=== PATIENT | female | born 1970 | race Caucasian/White ===

== ENCOUNTER 2018-02-10 01:00 | Inpatient (IN) | payer MEDICAID ==
[~2018-02-10] VITALS: Ht 160 cm; Wt 59.8 kg
[2018-02-10 01:52] LABS: BASOPHILS % (AUTO) 1.9 % (0.0-2.0); EOSINOPHILS % (AUTO) 2.7 % (1.0-6.0); HEMATOCRIT 39.6 % (36-46); HEMOGLOBIN 13.7 g/dL (12.0-16.0); LYMPHOCYTES # (AUTO) 2.1 K/uL (1.0-4.8); LYMPHOCYTES % (AUTO) 20.4 % (22.0-44.0); MEAN CORPUSCULAR HEMOGLOBIN 30.4 pg (26.0-34.0); MEAN CORPUSCULAR HGB CONC 34.5 G/dL (31.0-37.0); MEAN CORPUSCULAR VOLUME 88 fL (80-100); MONOCYTES # (AUTO) 0.9 K/uL (0.1-1.0); MONOCYTES % (AUTO) 8.2 % (2.0-9.0); NEUTROPHILS # (AUTO) 7.1 K/uL (1.8-7.7); NEUTROPHILS % (AUTO) 66.8 % (40.0-70.0); RED CELL DISTRIBUTION WIDTH 13.6 % (11.5-14.5)
[2018-02-10 02:04] LABS: ANION GAP 7 mmol/L (8-16); CALCIUM, TOTAL 8.8 mg/dL (8.8-10.5); CARBON DIOXIDE 26 mmol/L (22-29); CHLORIDE 105 mmol/L (98-107); CREATININE 0.84 mg/dL (0.60-1.30); GLOMERULAR FILTR. RATE CALC > 60 mL/min (>60); GLUCOSE,RANDOM 112 mg/dL (70-110); POTASSIUM 3.7 mmol/L (3.5-5.1); SODIUM SERUM 138 mmol/L (136-145); UREA NITROGEN, BLOOD 16 mg/dL (7-18)
[2018-02-10 02:11] LABS: ALANINE AMINOTRANSFERASE 18 U/L (12-78); ALBUMIN 3.9 g/dL (3.4-5.0); ALKALINE PHOSPHATASE 70 U/L (46-116); ASPARTATE AMINOTRANSFERASE 19 U/L (15-37); BILIRUBIN,TOTAL 0.4 mg/dL (0.1-1.0); TOTAL PROTEIN, SERUM 7.8 g/dL (6.4-8.2)
[2018-02-10 02:25] LABS: PLATELET COUNT (AUTO) 234 K/uL (150-450); PLATELET MORPHOLOGY COMMENT GIANT PLTS PRESENT
[2018-02-10] MEDS ORDERED: ZOLPIDEM TARTRATE 10 MG TABLET PO PRN (03:00)
[2018-02-10] MEDS ORDERED: MAG HYDROX/AL HYDROX/SIMETH ES 30 ML SUSPENSION UDCUP PO PRN ×2 (03:00→11:30)
[2018-02-10] MEDS ORDERED: LORazepam 2 MG TABLET PO PRN (03:00)
[2018-02-10] MEDS ORDERED: HALOPERIDOL 5 MG TABLET PO PRN (03:00)
[2018-02-10] MEDS ORDERED: MAGNESIUM HYDROXIDE SUSPENSION 30 ML UDCUP PO PRN ×2 (03:00→11:30)
[2018-02-10] MEDS ORDERED: LOPERAMIDE HCL 2 MG CAPSULE PO PRN ×2 (03:00→11:30)
[2018-02-10 06:54] LABS: AMPHET/METH SCREEN,URINE NEGATIVE (NEGATIVE); BARBITURATE SCREEN, URINE NEGATIVE (NEGATIVE); BENZODIAZEPINES SCREEN,URINE NEGATIVE (NEGATIVE); CANNABINOID SCREEN,URINE NEGATIVE (NEGATIVE); COCAINE SCREEN,URINE NEGATIVE (NEGATIVE); METHADONE SCREEN, URINE NEGATIVE (NEGATIVE); OPIATE SCREEN,URINE NEGATIVE (NEGATIVE)
[2018-02-10 07:02] LABS: PHENCYCLIDINE SCREEN,URINE NEGATIVE (NEGATIVE)
[2018-02-10 10:43] VITALS: BP 122/74
[2018-02-10 11:03] VITALS: BP 122/74
[2018-02-10] MEDS ORDERED: ALBUTEROL SULFATE HFA 90 MCG/PUFF 8 GM INHALER IH PRN (11:30)
[2018-02-10] MEDS ORDERED: CloNIDine HCL 0.1 MG TABLET PO PRN (11:30)
[2018-02-10] MEDS ORDERED: PETROLATUM,WHITE 71 GM JELLY TP PRN (11:30)
[2018-02-10] MEDS ORDERED: DOCUSATE SODIUM 100 MG CAPSULE PO PRN (11:30)
[2018-02-10] MEDS ORDERED: ONDANSETRON HCL 4 MG TABLET PO PRN (11:30)
[2018-02-10] MEDS ORDERED: ACETAMINOPHEN 325 MG TABLET PO PRN (11:30)
[2018-02-10] MEDS ORDERED: IBUPROFEN 400 MG TABLET PO PRN (11:30)
[2018-02-10 11:44] VITALS: BP 122/74
[2018-02-11 06:39] VITALS: BP 106/60
[2018-02-11 08:01] VITALS: BP 100/57
[2018-02-11 08:22] LABS: HEMOGLOBIN A1C 5.5 % (4.5-6.2)
[2018-02-11] MEDS ORDERED: NICOTINE 14 MG/24 HOUR PATCH TD SCH (09:00)
[2018-02-11] MEDS ORDERED: FLUoxetine HCL 20 MG CAPSULE PO SCH (09:00)
[2018-02-11 09:15] LABS: CHOL/HDL RATIO 3.3 (3.9-5.7); THYROID STIMULATING HORMONE 1.71 uIU/mL (0.36-3.74)
[2018-02-11 16:17] VITALS: BP 128/79
[2018-02-12 06:21] VITALS: BP 105/66
[2018-02-12 08:33] VITALS: BP 106/57
[2018-02-12] MEDS: FLUoxetine HCL 20 MG CAPSULE PO SCH (09:35)
[2018-02-12 16:48] VITALS: BP 109/60
[2018-02-13] MEDS ORDERED: FLUO20CA30 PO (07:43)
[2018-02-13] MEDS: FLUoxetine HCL 20 MG CAPSULE PO SCH (08:34)
[2018-02-13 08:45] VITALS: BP 120/65
[2018-02-13] MEDS ORDERED: FLUoxetine HCL 20 MG CAPSULE PO SCH (09:00)
== END 2018-02-13 12:00 | disposition home or self-care (01) | DRG 751 ==
LOC: EMS 01:02 → EDBD 01:02 → EDSEX 01:02 → AHU 09:58 → B2S 20:30 → B3A 20:43
PROVIDERS: ADMIT Psychiatry & Neurology Psychiatry; ATTEND Psychiatry & Neurology Psychiatry
DX: F33.2 Major depressive disorder, recurrent severe without psychotic features (principal); R45.851 Suicidal ideations; F41.9 Anxiety disorder, unspecified; R73.9 Hyperglycemia, unspecified
CPT/HCPCS: 83036; 84443; 99285; G0480

== ENCOUNTER 2019-08-12 23:50 | Emergency (ER) | payer MEDICAID ==
[~2019-08-12 23:50] MED LIST: FLUO20CA30 PO
== END 2019-08-13 01:17 | disposition left against medical advice (07) ==
LOC: EMS 23:52
DX: F41.9 Anxiety disorder, unspecified (principal); Z53.21 Procedure and treatment not carried out due to patient leaving prior to being seen by health care provider

== ENCOUNTER 2022-02-01 12:03 | Day surgery (SDC) | payer MEDICAID, OTHER ==
[2022-01-30 09:32] LABS: COVID AG,FIA SOURCE NASOPHARYNGEAL
[~2022-02-01] VITALS: Ht 157.5 cm; Wt 59.5 kg
[~2022-02-01 12:03] MED LIST changes: +ESCI20TA37 PO; -FLUO20CA30 PO; +LABETALOL HCL 5 MG/ML 20 ML VIAL IVP ONE; +PROPOFOL 1% 20 ML VIAL IVP ONE; +SODIUM CHLORIDE 0.9% 1,000 ML ONE
[2022-02-01] MEDS ORDERED: SODIUM CHLORIDE 0.9% 1,000 ML IV ONE (12:30)
== END 2022-02-01 16:20 | disposition home or self-care (01) ==
LOC: SURGERY 12:03
PROVIDERS: ATTEND Internal Medicine Gastroenterology
DX: R19.5 Other fecal abnormalities (principal); K64.8 Other hemorrhoids; B96.81 Helicobacter pylori [H. pylori] as the cause of diseases classified elsewhere; K29.50 Unspecified chronic gastritis without bleeding; D64.9 Anemia, unspecified; Z79.899 Other long term (current) drug therapy
CPT/HCPCS: 87426; 45378; 43239; 88305; 88312; 88313; C9803; C1769; J2704; J3490; J7030